=== PATIENT | male | born 1965 | race Caucasian/White ===

== ENCOUNTER 2024-02-11 14:31 | Outpatient (AMB) | payer OTHER, SELFPAY ==
--- NOTE | 2024-02-11 14:46 | MHC.OFFVIS ---
Vital Signs 02/11/24 14:52 Height 6 ft Intake Visit Reasons: Rectal bleeding Intake Note: This patient presents for an assessment for rectal bleeidng. Pt c/o; reports his rectal bleeding started several weeks ago, reports itchiness. Emergency Management Coordinator Required: No Accompanied by: Self / Same As Patient Allergies No Known Allergies Allergy (Verified 02/11/24 14:57) Medication List - Last Reconciled 02/11/24 by Danilo Madsen MD amlodipine 10 mg PO DAILY aspirin 81 mg PO DAILY atorvastatin 10 mg PO DAILY bupropion HCl XL 150 mg PO DAILY hydrochlorothiazide 25 mg PO DAILY losartan 100 mg PO DAILY metoprolol succinate ER 50 mg PO DAILY paroxetine HCl 20 mg PO DAILY HPI HPI Rectal bleeding: Details: 58-year-old male referred for bleeding hemorrhoids. He says that about a month ago he noticed bleeding and pain in his anus. He says that he started applying preparation age. He says that this has improved significantly since that time He denies any history of straining and constipation. He says he was not aware that he had hemorrhoids in the past He says he feels much better now and does not seem to have significant symptoms anymore. He says he used to live in [place] and his last colonoscopy was about 6 years ago. [facility] Medical History Bleeding hemorrhoids Surgical History No pertinent past surgical history Family History Other Family history unknown Social History Unable to assess alcohol history related to: Unknown Patient Tobacco Use Status: Tobacco use Unknown Review of Systems Const Denies chills and Denies fever(s) Card Denies chest pain, Denies dyspnea and Denies dyspnea on exertion Resp Denies cough, Denies dyspnea and Denies dyspnea on exertion GI Reports hematochezia and Denies change in bowel habits Denies hematuria and Denies difficulty urinating Musc Denies back pain and Denies limited range of motion Neuro Denies focal weakness and Denies convulsions Psych Denies depression and Denies mood swings Physical Exam Const General: comfortable and no acute distress Orientation/consciousness: patient oriented x3 Neck Neck: Yes no lymphadenopathy Resp Auscultation: clear to auscultation bilaterally Cardio Rhythm: regular rhythm GI Other: Rectal exam shows a moderate size external hemorrhoid on the right side Palpation (GI): Soft to palpation, nontender and no guarding Neuro General: patient oriented x3 Office Procedures Anoscopy He was in edouard-knife position. The anoscope was gently inserted. A full examination of the anal canal was done. Did have moderate-sized internal hemorrhoids. There were no other lesions. There was no bleeding. He had some external hemorrhoids as well. There was no induration on digital exam. He did not have any significant tenderness. [id number] Assessment & Plan Assessment & Plan (1) Bleeding hemorrhoids: Code(s): K64.9 - Unspecified hemorrhoids Category: Medical Plan: He has moderate-sized internal and external hemorrhoids. He likely had outlet bleeding from this. He says that the bleeding has decreased significantly. He says he no longer has pain I did explain to him the option of hemorrhoidectomy for severe symptoms. I discussed the technique of this procedure as well as the risks, benefits, and alternatives I also advised him on avoiding straining and constipation. He says that if he has problems down the line, he will come back to the office for a follow-up visit to be re-evaluated. I also reminded him to be up-to-date with a screening colonoscopy. He says he may have done it about 5 or 6 years ago while he still lived in [place]. Coding Level of Care Code New Pt Level 3 (56178) Diagnoses Bleeding hemorrhoids K64.9 CPT Codes Details - CPT: 87883-Rwhzddjw ([id number])
== END 2024-02-11 15:14 | disposition home or self-care (01) ==
PROVIDERS: PCP Internal Medicine; Visit Provider Surgery
DX: K64.9 Unspecified hemorrhoids (principal)
CPT/HCPCS: 46600; 99203

== ENCOUNTER → 2024-02-11 14:31 | Outpatient (BNVA) | payer OTHER, SELFPAY | PROVIDERS: PCP Internal Medicine; Visit Provider Surgery | DX: K64.9 Unspecified hemorrhoids (principal) | CPT/HCPCS: 46600; 99202 ==

== ENCOUNTER → 2024-02-23 14:44 | Outpatient (REF) | payer OTHER, SELFPAY ==
--- NOTE | 2024-02-23 14:50 | CA_ITS ---
Transthoracic Echocardiogram Patient (Last, First, Middle): Archie Preston, Gender: Male Date of : 1965 Age: 58 Procedure Date: 02/23/2024 Procedure Type: Transthoracic Echocardiogram Location: OP Height: 185.42 cm Weight: 113.4 kg BSA: 2.37 m2 Heart Rate: bpm BP: 132 / 80 mmHg Production Bow Maker: STEF Referring MD: Tru Bello MD Symptoms: NEW MURMUR Study Quality: Fair ECG Rhythm: Sinus Conclusions: - The left ventricular systolic function is normal. The calculated ejection fraction is 62% by biplane method. - By appearance, prior mitral valve repair. Normal function. Findings Left Ventricle Normal left ventricular cavity size. There is mildly increased left ventricular wall thickness. The left ventricular systolic function is normal. The calculated ejection fraction is 62% by biplane method. There is no evidence of regional wall motion abnormalities. Diastolic function is normal for age. LV peak GLS -19.3% (normal). Right Ventricle Mildly increased right ventricular cavity size. There is normal right ventricular systolic function. Atria The left atrium is mildly dilated. The right atrium is normal in size. Aortic Valve There is a normal trileaflet aortic valve. There is no aortic valve stenosis. There is no aortic valve regurgitation. Mitral Valve There is no mitral valve regurgitation. Mitral valve appearance suggestive of prior repair. Posterior leaflet resection. Mean gradient across the valve, 4 mm Hg at 70/Min. Overall, normal function. Pulmonic Valve The pulmonic valve is likely normal. Tricuspid Valve There is trace tricuspid valve regurgitation. There is no evidence of pulmonary hypertension. Great Vessels The asc aorta is normal in size. Venous The inferior vena cava was not well visualized. Pericardium/Pleural There is no evidence of pericardial effusion. Prior Study Comparison No prior study available for comparison. Measurements 2D Linear Measurements IVSd: 1.10 0.6-0.9/0.6-1.0 cm LVIDd: 5.21 3.9-5.3/4.2-5.9 cm LVIDd Index: 2.20 2.4-3.2/2.2-3.1 cm/m2 LVIDs: 3.50 2.0-3.6 cm LVPWd: 0.93 0.7-1.1 cm LA Diam: 4.90 2.7-3.8/3.0-4.0 cm LAIDs Index: 2.07 1.5-2.3 cm/m2 LV Mass: 247.28 67-162/88-224 g LV Mass Index: 104.34 43-95/49-115 g/m2 LVOT Diam: 2.20 3.0+(-)1.3 cm 2D Systolic Function EF 4C: 62.80 >55% EF 2C: 61.10 >55% EF BiP: 61.50 >55% Mitral Valve MV VTI: 0.50 MV Pk Kamran: 1.45 MV Mn Kamran: 0.92 MV Pk Grad: 8.00 MV Mn Grad: 4.00 MV Pk E: 1.47 MV PK A: 1.28 MV Decel Time: 251.00 E/A: 1.10 E'Lateral: 8.49 E'Medial: 6.42 E/E' Med: 22.90 E/E' Lat: 17.30 PHT: 73.00 MVA PHT: 3.01 MVA Continuity: 1.68 Decel [place]: 5.89 Aortic Valve AoV Pk Kamran: 1.22 AoV Mn Kamran: 0.90 AoV VTI: 0.30 AoV Pk Grad: 6.00 Aov Mn Grad: 4.00 SWETA Cont.VTI: 2.76 LVOT LVOT Pk Kamran: 0.92 LVOT Mn Kamran: 0.63 LVOT VTI: 0.22 LVOT Pk Grad: 3.00 LVOT Mn Grad: 2.00 LVOT Diam: 2.20 LVOT Area: 3.80 Diastolic Function MV Pk E: 1.47 MV Pk A: 1.28 E/A: 1.10 E'Medial: 6.42 E/E' Med: 22.90 E' Laterial: 8.49 E/E' Lat: 17.30 Right Ventricle TAPSE (mm): 20.30 TVS' Kamran: 13.30 Tricuspid Valve TR Pk Kamran: 2.53 TR Pk Grad: 26.00 Great Vessels Aorta Sinus of Valsalva: 3.38 2.0-3.[address] [place]: 3.29 1.7-3.4 cm Ao Asc: 3.60 2.1-3.4 cm Updated in Other Vendor System with Status of Final Devin Tom MD electronically signed on 02/24/2024 12:51:27 PM with status of Final
== END ==
LOC: HO.CARD 14:44
PROVIDERS: PCP Internal Medicine; Visit Provider Internal Medicine
DX: R01.1 Cardiac murmur, unspecified (principal)
CPT/HCPCS: 93306; 93356

== ENCOUNTER → 2024-02-23 14:50 | Outpatient (BNV) | payer OTHER, SELFPAY | PROVIDERS: PCP Internal Medicine; Visit Provider Internal Medicine | DX: R01.1 Cardiac murmur, unspecified (principal) | CPT/HCPCS: 93306; 93356 ==

== ENCOUNTER 2024-03-08 08:14 | Outpatient (AMB) | payer OTHER, SELFPAY ==
[2024-03-08 08:29] VITALS: BP 138/76; PULSE 72; BMI 33.2
--- NOTE | 2024-03-08 08:29 | A.OFFVIS_ITS ---
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 Around 9 years ago, 2014, he apparently had mitral valve repair in [place]. Prior to that, he was having exertional shortness of breath which led to cardiac workup. It seems that he might have been diagnosed with severe mitral regurgitation and then mitral valve was repaired. All details are not available as yet. Will need to request records. Otherwise, for the most part he is doing fine. Federico etimes he is getting short of breath with activities like bending down and sometimes with physical exertion. He also states he has gained a lot of weight. No clear angina. Otherwise, hypertensive on medications. Also on statins. [facility] Medical History (Updated 03/08/24 @ 09:05 by Devin Tom MD) Other and unspecified hyperlipidemia Essential hypertension Bleeding hemorrhoids Surgical History (Updated 03/08/24 @ 09:04 by Devin Tom MD) Status post mitral valve repair No pertinent past surgical history Family History Other Family history unknown Social History (Updated 03/08/24 @ 08:33 by Lucie Jeter CMA) Unable to assess alcohol history related to: Unknown Alcohol intake: current Comment: social Patient Tobacco Use Status: Never used Tobacco Review of Systems Const Denies chills, Denies daytime sleepiness, Denies fatigue, Denies fever(s), Denies poor appetite, Denies snoring, Denies stops breathing during sleep, Denies weakness, Denies weight gain and Denies weight loss Eyes Denies loss of vision ENT Denies dizziness and Denies hearing loss Card Denies chest pain, Denies irregular heart rhythm, Denies claudication, Denies leg edema, Denies lightheadedness, Denies palpitations, Denies dyspnea on exertion and Denies orthopnea Resp Denies cough, Denies excessive phlegm production, Denies dyspnea on exertion, Denies snoring and Denies wheezing GI Denies abdominal pain, Denies hematochezia, Denies change in bowel habits, Denies nausea and Denies vomiting Denies dysuria and Denies urinary frequency Musc Denies arthralgias, Denies muscle weakness, Denies numbness and Denies other Skin/Breast Denies nail changes and Denies rash Neuro Denies Abnormal speech present, Denies dizziness, Denies loss of vision, Denies memory loss, Denies numbness and Denies weakness Psych Denies depression and Denies memory loss Endo Denies fatigue and Denies palpitations Geo/Lymph Denies easy bruising Aller/Immun Denies wheezing Physical Exam Vital Signs: Last Vital Signs Pulse 72 03/08/24 08:29 BP 138/76 03/08/24 08:29 BMI result Body Mass Index 33.2 Const General: comfortable and no acute distress Orientation/consciousness: patient oriented x3 HEENT Other: Unremarkable Head: Yes normal to inspection Neck Neck: Yes normal visual inspection Chest Chest palpation & inspection: normal inspection of the chest Resp Auscultation: clear to auscultation bilaterally Cardio Palpation: normal PMI Heart sounds: S1 normal heart sound present, S2 normal heart sound present, no gallops, Murmur heart sound present systolic II/ and at the apex and no rubs GI Palpation (GI): Soft to palpation Back/Spine/Pelvis Other: unremarkable Skin General skin exam: no rashes or lesions noted Neuro General: patient oriented x3 Speech: No Abnormal speech present Extrem General: Yes normal to inspection Psych Mental Status: mental status grossly normal Office Procedures EKG Details: EKG with underlying sinus rhythm at 72/Min; no significant ST-T changes and otherwise unremarkable. Normal MS. Borderline corrected QT at 475 milliseconds. 33578-Rqkyhrvivgnwyxtfb, Complete Assessment & Plan Assessment & Plan (1) Status post mitral valve repair: Code(s): Z98.890 - Other specified postprocedural states Category: Surgical (2) Essential hypertension: Code(s): I10 - Essential (primary) hypertension Category: Medical (3) Other and unspecified hyperlipidemia: Code(s): E78.5 - Hyperlipidemia, unspecified Category: Medical Plan In the recent echocardiogram, evidence of mitral valve repair with posterior leaflet resection. No significant mitral regurgitation. Gradient within range. Preserved LVEF with normal peak global longitudinal strain. Overall study is unremarkable. His shortness of breath could be related to weight gain as opposed to anything cardiac. Will need to get records from [place] including details of any cardiac catheterization. Otherwise, blood pressure is borderline and he is already on multiple medication s. Also on statins. LDL 79 mg/dL. Triglycerides 121 mg/dL. Will follow-up with records. Coding Level of Care Code New Pt Level 4 (54376) Diagnoses Status post mitral valve repair Z98.890 Essential hypertension I10 Other and unspecified hyperlipidemia E78.5 CPT Codes EKG - CPT: 18953-Owzggstxmbdgzyyid, Complete ([id number])
== END 2024-03-08 08:59 | disposition home or self-care (01) ==
PROVIDERS: PCP Internal Medicine; Visit Provider Internal Medicine
DX: I10 Essential (primary) hypertension (principal); E78.5 Hyperlipidemia, unspecified; Z95.4 Presence of other heart-valve replacement
CPT/HCPCS: 93010; 99214

== ENCOUNTER → 2024-03-08 08:14 | Outpatient (BNVA) | payer OTHER, SELFPAY | PROVIDERS: PCP Internal Medicine; Visit Provider Internal Medicine | DX: I10 Essential (primary) hypertension (principal); E78.5 Hyperlipidemia, unspecified; Z98.890 Other specified postprocedural states | CPT/HCPCS: 93005; 99212 ==

== ENCOUNTER 2024-04-27 14:08 | Outpatient (AMB) | payer OTHER, SELFPAY ==
[2024-04-27 14:09] VITALS: BP 130/60; PULSE 80; BMI 33.0
--- NOTE | 2024-04-27 14:09 | MHC.OFFVIS ---
Vital Signs 04/27/24 14:09 Height 6 ft Weight 243 lb 6.245 oz BMI 33.0 BP 130/60 Blood Pressure Location Lt brachial Position Sitting Pulse 80 Pulse Source Pulse Oximeter Intake Visit Reasons: 2 mth f/up s/p fla notes C Architect Required: No Accompanied by: Self / Same As Patient Allergies No Known Allergies Allergy (Verified 02/11/24 14:57) Medication List - Last Reconciled 04/27/24 by Devin Tom MD amlodipine 10 mg PO DAILY aspirin 81 mg PO DAILY atorvastatin 10 mg PO DAILY bupropion HCl XL 150 mg PO DAILY hydrochlorothiazide 25 mg PO DAILY losartan 100 mg PO DAILY metoprolol succinate ER 50 mg PO DAILY paroxetine HCl 20 mg PO DAILY HPI Comments Details: Archie returns for follow-up. Recently seen in consultation regarding mitral valve repair. Records were reviewed. In 2014, he underwent complex mitral valve repair with resection of P2. Mitral valve annuloplasty with 34 mm ring. Diagnosis listed include severe mitral regurgitation/congestive heart failure. Overall, he states he feels fine for the most part. When he bends down or so, he can feel short of breath but he feels that it is due to gaining weight. His weight was as low as 180-190 lb in the past but he has gained a lot of weight over time and he feels that is the reason. No clear-cut angina. No other concerns. On meds for hypertension and cholesterol. [facility] Medical History (Updated 03/08/24 @ 09:05 by Devin Tom MD) Other and unspecified hyperlipidemia Essential hypertension Bleeding hemorrhoids Surgical History Status post mitral valve repair No pertinent past surgical history Family History Other Family history unknown Social History Unable to assess alcohol history related to: Unknown Alcohol intake: current Comment: social Patient Tobacco Use Status: Never used Tobacco Review of Systems Const Denies chills, Denies fatigue, Denies fever(s), Denies weight gain and Denies weight loss ENT Denies dizziness Card Denies chest pain, Denies leg edema, Denies lightheadedness, Denies palpitations, Denies dyspnea on exertion, Denies orthopnea and Denies other Resp Denies cough and Denies dyspnea on exertion GI Denies hematochezia and Denies change in stool character Musc Denies abnormal gait, Denies muscle weakness, Denies numbness, Denies radiating pain into limb and Denies tingling Neuro Denies abnormal gait, Denies dizziness, Denies numbness and Denies tingling Endo Denies fatigue and Denies palpitations Physical Exam Vital Signs: Last Vital Signs Pulse 80 04/27/24 14:09 BP 130/60 04/27/24 14:09 BMI result Body Mass Index 33.0 Const General: comfortable and no acute distress Orientation/consciousness: patient oriented x3 HEENT Other: Unremarkable Head: Yes normal to inspection Neck Neck: Yes normal visual inspection Chest Chest palpation & inspection: normal inspection of the chest Resp Auscultation: clear to auscultation bilaterally Cardio Palpation: normal PMI Heart sounds: S1 normal heart sound present, S2 normal heart sound present, no gallops, Murmur heart sound present systolic II/ and at the apex and no rubs GI Palpation (GI): Soft to palpation Back/Spine/Pelvis Other: unremarkable Skin General skin exam: no rashes or lesions noted Neuro General: patient oriented x3 Extrem General: Yes normal to inspection Psych Mental Status: mental status grossly normal Assessment & Plan Assessment & Plan (1) Status post mitral valve repair: Code(s): Z98.890 - Other specified postprocedural states Category: Surgical Plan Per operative note from 2015- mitral valve repair/P2 resection; annuloplasty with 34 mm ring. In the recent echocardiogram, evidence of mitral valve repair with posterior leaflet resection. No significant mitral regurgitation. Gradient within range. Preserved LVEF with normal peak global longitudinal strain. Overall study is unremarkable. Overall, stable valvular function, post mitral valve repair. Suspect his occasional shortness of breath when he is bending down is more likely from weight than anything cardiac. After long discussion, we decided to just monitor for now. If shortness of breath gets worse, we can look into it further. Otherwise, he will try to lose weight and then we will reassess. Coding Level of Care Code Est Pt Level 3 (01069) Diagnoses Status post mitral valve repair Z98.890
== END 2024-04-27 14:27 | disposition home or self-care (01) ==
PROVIDERS: PCP Internal Medicine; Visit Provider Internal Medicine
DX: Z98.890 Other specified postprocedural states (principal)
CPT/HCPCS: 99213

== ENCOUNTER → 2024-04-27 14:08 | Outpatient (BNVA) | payer OTHER, SELFPAY | PROVIDERS: PCP Internal Medicine; Visit Provider Internal Medicine | DX: Z98.890 Other specified postprocedural states (principal) | CPT/HCPCS: 99212 ==

== ENCOUNTER 2024-10-17 14:31 | Outpatient (REF) | payer OTHER, SELFPAY ==
--- NOTE | ~2024-10-17 | XR_ITS ---
EXAMINATION: XR FOOT 3 OR MORE VIEWS RIGHT HISTORY: RIGHT FOOT PAIN COMPARISON: There are no prior studies available for comparison. FINDINGS: Three views of the right foot are submitted. Osseous mineralization is normal. There is no fracture or dislocation. The joint spaces are preserved. There are calcaneal spurs at the plantar aspect and at the insertion of the Achilles tendon. The soft tissues are unremarkable. XR/XR foot RT min 3V IMPRESSION: Calcaneal spurs as described. Otherwise unremarkable examination of the right foot. Electronically signed by: Kevin Morrison MD 10/18/2024 08:12 AM EDT
--- OUTSIDE RECORDS SUMMARY | 2024-10-17 17:21 | XMS_ITS | Patient Health Record ---
Author Organization [facility] Address [address] [place] [address] Care Team Providers Care Child And Adolescent Psychiatrist Name Role Phone David Joyner Primary Care Provider Tad Rosario Unavailable [phone] Allergies No Known Allergies Reason For Referral No Information Medications Medication SIG (Take, Route, Frequency, Duration) Notes Start Date End Date Status hydroCHLOROthiazide Active Metoprolol Active Clenpiq 10-3.5-12 MG-GM -GM/175ML Follow instructions given by office Orally as directed for 2 days 04/01/2023 Active Losartan Potassium A ctive Atorvastatin Calcium Active ASA Active Bupropion Active amlodipine Active PARoxetine HCl Activ e Problems Problem Type SNOMED Code ICD Code Onset Dates Problem Status W/U Status Risk Notes Problem Abnormal results of liver function studies (683709965) Abnormal results of liver function studies (R94.5) Active confirmed This has been stable. Problem Alcohol dependence (07416876) Alcohol dependence, uncomplicated (F10.20) Active confirmed He has significant alcohol abuse. He was advised to stop drinking alcohol altogether. Problem Screening for malignant neoplasm of colon (709448323) Encounter for screening for malignant neoplasm of colon (Z12.11) Active confirmed He is a candidate for screening colonoscopy. Problem Diverticular disease of colon (153660402) Diverticulosis of large intestine without perforation or abscess without bleeding (K57.30) Active confirmed There is no evidence of diverticulitis . Problem Fatty liver (362066799) Fatty (change of) liver, not elsewhere classified (K76.0) Active confirmed He has history of fatty liver changes. He will need FIBROSCAN done. Problem Constipation (55420923) Constipation, unspecified (K59.00) Active confirmed Constipation is stable at this time. 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 Problem Screening colonoscopy (139755078) Screening Colonoscopy (V76.51) Active confirmed Problem Constipation (70397545) Constipation (564.00) Active confirmed Problem 908722793 Benign neoplasm of colon, unspecified (D12.6) Active confirmed He had previous history of colon polyps. He is a candidate for surveillance colonoscopy. He is agreeable to have a colonoscopy done. Plan Of Treatment Pending Test Test Name Order Date -COLONOSCOPY 04/01/2023 FIBROSCAN 04/01/2023 Insurance Providers Payer Name Payer Address Payer Phone Subscriber Number Group Number Insured Name Patient Relationship to Insured Coverage Start Date Coverage End Date [employer] [address] [place] [address] [id number] DAHLIA CORONADO Self - patient is the insured Medical (General) History Medical History History ICD Code dyslipidemia anxiety Hypertension Fatty liver Surgical History Surgery Date(Month/Year) leaky mitrovalve open heart
--- OUTSIDE RECORDS SUMMARY | 2024-10-17 17:21 | XMS_ITS | Patient Health Record ---
Author Organization [facility] Billing Info Address [address] [place] [address] Care Team Providers Care Director Clinical Applications Name Role Phone David Joyner MD Primary Care Provider Unavaila RUBEN [place] Unavailable [phone] Reason For Referral No Information Medications Medication SIG (Take, Route, Frequency, Duration) Notes Start Date End Date Status Aspir-81 81 MG 1 tablet Orally Once a day Active Losartan Potassium 50 MG Oral for 90 Active Citalopram Hydrobromide 20 MG 1 tablet Orally Once a day Active Social History Tobacco Use: Social History Observation Description Date Details (start date - stop date) Never Smoker NA - NA Tobacco Status: Question Answer Notes Patient is a never smoker Problems Problem Type SNOMED Code ICD Code Onset Dates Problem Status W/U Status Risk Notes Problem 34929808 Mixed hyperlipidemia (E78.2) Active confirmed Problem 5742006739066 Presence of prosthetic heart valve (Z95.2) Active confirmed Problem 62596901 Palpitations (R00.2) Active confirmed Problem Mitral valve disorder (16348133) Mitral valve disorders (I05.9) Active confirmed Plan Of Treatment No Information Insurance Providers Payer Name Payer Address Payer Phone Subscriber Number Group Number Insured Name Patient Relationship to Insured Coverage Start Date Coverage End Date [employer] HMO POS [address] JELENA HERRERA [id number] [phone] [id number] Archie Preston Self - patient is the insured Medical (General) History Medical History History ICD Code Dyslipidemia Hypertension MVP s/p Complex MV repair with 34mm Phys io II ring 4/[address] Queen Normal coronary arteries by 08/27 cath
--- OUTSIDE RECORDS SUMMARY | 2024-10-17 17:21 | XMS_ITS ---
Author Organization [facility] Address [address] [place] [address] Care Team Providers Care Boat Garnisher Name Role Phone David Joyner Primary Care Provider Tad Rosario [phone] REASON FOR VISIT PT MOVING OUT OF STATE Encounters Encounter Location Date Provider Diagnosis [facility] [address] [facility] [address] [place], [place] [id number] 06/15/2023 Tad Noonan Plan Of Treatment No Information Progress Notes * DAHLIA CORONADO WDOB:[birth year] (59 yo M)Acc No.[id number]:06/15/2023 Patient:?DAHLIA CORONADO Provider:?Tad Noonan MD :1965???Age:58 Y???Sex:Male Eris e:06/15/2023 Address:[address] Pcp:David Joyner * * Electronic signature of Bijan Noonan MD on 10/17/2024 at 05:20 PM EDT Sign off status: Pending * Provider:?Tad Noonan MD Date:? 023 Generated for Ronel hammonds/Javier/eTransmitting on:?10/17/2024 05:20 PM EDT
== END 2024-10-17 14:32 | disposition home or self-care (01) ==
LOC: HO.HMGCX 14:31
PROVIDERS: PCP Internal Medicine; Visit Provider Internal Medicine
DX: M79.671 Pain in right foot (principal)
CPT/HCPCS: 73630

== ENCOUNTER → 2024-10-17 14:36 | Outpatient (BNV) | payer OTHER, SELFPAY | PROVIDERS: PCP Internal Medicine; Visit Provider Radiology Diagnostic Radiology | DX: M77.31 Calcaneal spur, right foot (principal) | CPT/HCPCS: 73630 ==

== ENCOUNTER 2024-10-27 09:58 | Outpatient (AMB) | payer OTHER, SELFPAY ==
--- NOTE | 2024-10-27 10:00 | MHC.OFFVIS ---
Vital Signs 10/27/24 10:03 Height 6 ft Weight 229 lb 11.547 oz BMI 31.2 BP 130/64 Blood Pressure Location Lt brachial Position Sitting Pulse 67 Pulse Source Pulse Oximeter Intake Visit Reasons: 6 mth f/up Patient Monitor Required: No Accompanied by: Self / Same As Patient Allergies No Known Allergies Allergy (Verified 02/11/24 14:57) Medication List - Last Reconciled 10/27/24 by Devin Tom MD amlodipine 10 mg PO DAILY aspirin 81 mg PO DAILY atorvastatin 10 mg PO DAILY bupropion HCl XL 150 mg PO DAILY hydrochlorothiazide 25 mg PO DAILY losartan 100 mg PO DAILY metoprolol succinate ER 50 mg PO DAILY paroxetine HCl 20 mg PO DAILY HPI Comments Details: Archie returns for follow-up. History of mitral valve repair. In 2014, he underwent complex mitral valve repair with resection of P2. Mitral valve annuloplasty with 34 mm ring. Diagnosis listed include severe mitral regurgitation/congestive heart failure. Overall, he states he feels good. No cardiac symptoms including angina or shortness of breath or in fact anything along those lines. Has gained some weight over the last few months. Otherwise no concerns. On meds for hypertension/cholesterol. Exercise The patient reports a current focus on weight loss with no specific exercise regimen mentioned. There are no symptoms associated with exertion, and he mentions being out of breath is no longer an issue. His goal involves losing weight, but specific details about exercise type, duration, and frequency were not discussed. [facility] Medical History (Updated 03/08/24 @ 09:05 by Devin Tom MD) Other and unspecified hyperlipidemia Essential hypertension Bleeding hemorrhoids Surgical History Status post mitral valve repair No pertinent past surgical history Family History Other Family history unknown Social History Unable to assess alcohol history related to: Unknown Alcohol intake: current Comment: social Patient Tobacco Use Status: Never used Tobacco Review of Systems Const Denies chills, Denies fatigue, Denies fever(s), Denies frequent falls, Denies weakness, Denies weight gain and Denies weight loss ENT Denies dizziness Card Denies chest pain, Denies leg edema, Denies lightheadedness, Denies palpitations, Denies dyspnea and Denies dyspnea on exertion Resp Denies cough, Denies dyspnea and Denies dyspnea on exertion GI Denies hematochezia Musc Denies abnormal gait, Denies muscle weakness, Denies numbness, Denies radiating pain into limb and Denies tingling Neuro Denies abnormal gait, Denies dizziness, Denies frequent falls, Denies numbness, Denies tingling and Denies weakness Endo Denies fatigue and Denies palpitations Physical Exam Vital Signs: Last Vital Signs Pulse 67 10/27/24 10:03 BP 130/64 10/27/24 10:03 BMI result Body Mass Index 31.2 Const General: comfortable and no acute distress Orientation/consciousness: patient oriented x3 HEENT Other: Unremarkable Head: Yes normal to inspection Neck Neck: Yes normal visual inspection Chest Chest palpation & inspection: normal inspection of the chest Resp Auscultation: clear to auscultation bilaterally Cardio Palpation: normal PMI Heart sounds: S1 normal heart sound present, S2 normal heart sound present, no gallops, Murmur heart sound present systolic I/ and at the apex and no rubs GI Palpation (GI): Soft to palpation Back/Spine/Pelvis Other: unremarkable Skin General skin exam: no rashes or lesions noted Neuro General: patient oriented x3 Extrem General: Yes normal to inspection Psych Mental Status: mental status grossly normal Assessment & Plan Assessment & Plan (1) Status post mitral valve repair: Code(s): Z98.890 - Other specified postprocedural states Category: Surgical Plan Per operative note from 2014- mitral valve repair/P2 resection; annuloplasty with 34 mm ring. In the echocardiogram, evidence of mitral valve repair with posterior leaflet resection. No significant mitral regurgitation. Gradient within range. Preserved LVEF with normal peak global longitudinal strain. Overall study is unremarkable. Overall, stable valvular function, post mitral valve repair. In fact endocarditis prophylaxis per protocol. Main recommendation his weight loss and he is willing to do his part to get back to baseline. Stable on the current meds for hypertension/dyslipidemia. Discussion Notes During the visit, I reviewed the patient's goals for weight management and discussed the importance of lifestyle modification, including diet and exercise. We planned an echocardiogram in one year to continue monitoring cardiac health, which aligns with his baseline evaluation schedule and current asymptomatic status. I advised the patient to remain alert to any new symptoms and to seek medical attention should any arise. Weight loss remains a primary objective after his recent cruises, and patient consent was obtained for the proposed management plan. Patient was informed and verbally consented to the use of an ambient scribe for clinic note documentation during this visit. Orders: Orders CA echo transthoracic complete 1 Year Z98.890 - Other specified postprocedural states Patient Instructions: - Aim to reduce your weight from 229 pounds to reach your baseline target of 180 pounds. - Continue to monitor for any new symptoms like chest pain or difficulty breathing. - Maintain communication with our office if you experience any health changes. - Follow up for an echocardiogram in one year. Coding Level of Care Code Est Pt Level 3 (82833) Diagnoses Status post mitral valve repair Z98.890
[2024-10-27 10:03] VITALS: BP 130/64; PULSE 67; BMI 31.2
--- OUTSIDE RECORDS SUMMARY | 2024-10-27 11:38 | XMS_ITS | Patient Health Record ---
Author Organization [facility] Address [address] [place] [address] Care Team Providers Care Otr [employer] Driver Name Role Phone David Joyner Primary Care Provider Tad Rosario Unavailable [phone] Allergies No Known Allergies Reason For Referral [...] Problem Abnormal results of liver function studies (096678854) Abnormal results of liver function studies (R94.5) Active confirmed This has been stable. Problem Alcohol dependence (89651711) Alcohol dependence, uncomplicated (F10.20) Active confirmed He has significant alcohol abuse. He was advised to stop drinking alcohol altogether. Problem Screening for malignant neoplasm of colon (535939133) Encounter for screening for malignant neoplasm of colon (Z12.11) Active confirmed He is a candidate for screening colonoscopy. Problem Diverticular disease of colon (060335494) Diverticulosis of large intestine without perforation or abscess without bleeding (K57.30) Active confirmed There is no evidence of diverticulitis . Problem Fatty liver (420437875) Fatty (change of) liver, not elsewhere classified (K76.0) Active confirmed He has history of fatty liver changes. He will need FIBROSCAN done. Problem Constipation (61111739) Constipation, unspecified (K59.00) Active confirmed Constipation is stable at this time. 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 Problem Screening colonoscopy (661438032) Screening Colonoscopy (V76.51) Active confirmed Problem Constipation (60412187) Constipation (564.00) Active confirmed Problem 105575116 Benign neoplasm of colon, unspecified (D12.6) Active [...] Start Date Coverage End Date [employer] [address] [place] [address] [id number] DAHLIA CORONADO Self - patient is the insured Medical (General) History Medical History History ICD Code dyslipidemia anxiety Hypertension Fatty liver Surgical History Surgery Date(Month/Year) leaky mitrovalve open heart
--- OUTSIDE RECORDS SUMMARY | 2024-10-27 11:39 | XMS_ITS | Patient Health Record ---
Author Organization [facility] Billing Info Address [address] [place] [address] Care Team Providers Care Licensed Optician Name Role Phone David Joyner MD Primary Care Provider Unavaila RUBEN [place] Unavailable [phone] Reason For Referral No Information Medications Medication [...] Problem Status W/U Status Risk Notes Problem 56808561 Mixed hyperlipidemia (E78.2) Active confirmed Problem 6037710742792 Presence of prosthetic heart valve (Z95.2) Active confirmed Problem 65699032 Palpitations (R00.2) Active confirmed Problem Mitral valve disorder (98541929) Mitral valve disorders (I05.9) Active confirmed Plan Of Treatment No Information Insurance Providers Payer Name Payer Address Payer Phone Subscriber Number Group Number Insured Name Patient Relationship to Insured Coverage Start Date Coverage End Date [employer] HMO POS [address] JELENA HERRERA [id number] Archie Preston Self - patient is the insured Medical (General) History Medical History History ICD Code Dyslipidemia Hypertension MVP s/p Complex MV repair with 34mm Phys io II ring 4/[address] Queen Normal coronary arteries by 08/27 cath
--- OUTSIDE RECORDS SUMMARY | 2024-10-27 11:39 | XMS_ITS ---
Author Organization [facility] Address [address] [place] [address] Care Team Providers Care Automation Analyst Name Role Phone David Joyner Primary Care Provider Tad Rosario [phone] REASON FOR VISIT PT MOVING OUT OF STATE Encounters Encounter Location Date Provider Diagnosis [facility] [address] [facility] [address] [facility] [address] [place], [place] [id number] 06/15/2023 Tad Noonan Plan Of Treatment No Information Progress Notes * DAHLIA CORONADO WDOB:[birth year] (59 yo M)Acc No.[id number]:06/15/2023 Patient:?DAHLIA CORONADO Provider:?Tad Noonan MD :1965???Age:58 Y???Sex:Male Eris e:06/15/2023 Address:[address], [address], [facility]3][id number] Pcp:David Joyner * * Electronic signature of Bijan Noonan MD on 10/27/2024 at 11:39 AM EDT Sign off status: Pending * Provider:?Tad Noonan MD Date:? 023 Generated for Ronel hammonds/Javier/eTransmitting on:?10/27/2024 11:39 AM EDT
== END 2024-10-27 10:13 | disposition home or self-care (01) ==
PROVIDERS: PCP Internal Medicine; Visit Provider Internal Medicine
DX: Z98.890 Other specified postprocedural states (principal)
CPT/HCPCS: 99213

== ENCOUNTER → 2024-10-27 09:58 | Outpatient (BNVA) | payer OTHER, SELFPAY | PROVIDERS: PCP Internal Medicine; Visit Provider Internal Medicine | DX: Z98.890 Other specified postprocedural states (principal) | CPT/HCPCS: 99212 ==

== ENCOUNTER 2025-03-21 09:31 | Outpatient (AMB) | payer OTHER, SELFPAY ==
--- NOTE | 2025-03-21 09:52 | MHC.PC.OV ---
Vital Signs 03/21/25 09:53 Height 6 ft 0.44 in Weight 230 lb BMI 30.8 BP 119/59 L Respiration 18 Pulse 72 Pulse Source Pulse Oximeter Temp 97.8 F Temp Source Temporal Artery Scan Pulse Oximetry (%) 96 Oxygen Delivery Method Room Air Intake Visit Reasons: Est [facility] pt Fourth Hand Required: No Accompanied by: Self / Same As Patient Allergies No Known Allergies Allergy (Verified 03/21/25 10:12) Medication List - Last Reconciled 03/21/25 by Gwendolyn Duran PA-C amlodipine 10 mg PO DAILY aspirin 81 mg PO DAILY atorvastatin 10 mg PO DAILY bupropion HCl XL 150 mg PO DAILY hydrochlorothiazide 25 mg PO DAILY losartan 100 mg PO DAILY metoprolol succinate ER 50 mg PO DAILY paroxetine HCl 20 mg PO DAILY Tobacco use date assessed: 03/21/25 Dental Screening Dental Screen Date: 03/21/25 Did you have a dental visit in the last 12 months?: Yes Did you have a dental problem in the last 6 months where you did not have access to dental care?: No Was dental information given to patient?: Patient has dentist HPI Est care [facility] pt HPI Details The patient is a 59-year-old male presenting for new patient appointment with hypertension and a history of heart valve disorder. Hypertension has been managed with multiple antihypertensive medications, including amlodipine, metoprolol, losartan, and hydrochlorothiazide. The patient reports that blood pressure has been well-controlled, currently at 120/60 mmHg, but there is a plan to monitor and potentially reduce medication if it remains consistently low. The patient has a history of heart valve disorder, having undergone open-heart surgery in 2014. An echocardiogram last year showed no significant issues, but a faint murmur was noted during the current examination. The patient is also being treated for anxiety and depression with bupropion and paroxetine. These medications were initially prescribed in [place] and have been continued by the current provider. Social History - Travel: Recently returned from a cruise and plans to travel to [employer] for [employer]. - Exercise: Does not engage in jogging but experiences dyspnea with exertion. [facility] Medical History (Updated 03/21/25 @ 10:38 by Gwendolyn Duran PA-C) Anxiety and depression Other and unspecified hyperlipidemia Essential hypertension Bleeding hemorrhoids Surgical History Status post mitral valve repair No pertinent past surgical history Family History Father Smoker Mother Aneurysm Social History Housing: Condominium Alcohol intake: current Alcohol intake frequency: 3 or more drinks per day Patient Tobacco Use Status: Never used Tobacco service: No Current occupational status: retired Cognitive needs: No Hearing needs: No Vision needs: Yes (rx glasses) Questionnaire PHQ-9 Over the last 2 weeks, how often have you been bothered by any of the following problems? 1. Little interest or pleasure in doing things: not at all 2. Feeling down, depressed, or hopeless: not at all 3. Trouble falling or staying asleep, or sleeping too much: not at all 4. Feeling tired or having little energy: not at all 5. Poor appetite or overeating: not at all 6. Feeling bad about yourself - or that you are a failure or have let yourself or your family down: not at all 7. Trouble concentrating on things, such as reading the newspaper or watching television: not at all 8. Moving or speaking so slowly that other people could have noticed. Or the opposite - being so fidgety or restless that you have been moving around a lot more than usual: not at all 9. Thoughts that you would be better off or of hurting yourself in some way: not at all Total score: 0 Depression Screening Interpretation: Negative Depression Screening Done: Yes 37182 - PHQ-9 Billing: Yes Source: Developed by Drs. Kevin Cage, Kathryn Suarez, Bernardo Solis and colleagues, with an educational liliana from [employer]. Thrive Questionnaire Date Thrive assessed: 03/21/25 I am a: Patient What is your living situation today?: I have a steady place to live Within the past 12 months, did the food you bought not last and you didn't have the money to get more?: Never true Within the past 12 months, did you worry whether your food would run out before you got money to buy more?: Never true Do you have trouble paying for medicines?: No Do you have trouble getting transportation to medical appointments?: No Do you have trouble paying your heating and electricity bill?: No Do you have trouble taking care of your child, family member or friend?: No Do you have trouble with day-to-day activities such as bathing, preparing meals, shopping, managing finances, etc.?: No Are you currently unemployed and looking for a job?: No Are you interested in more education?: No Please select the resources that you would like help with: None THRIVE Score: 0 AUDIT C Alcohol Use Questionnaire (AUDIT-C) 1. How often do you have a drink containing alcohol?: 4 or more times a week 2. How many drinks containing alcohol do you have on a typical day when you are drinking?: 3 or 4 3. How often do you have six or more drinks on one occasion?: Never Total Score: 5 Score Reviewed/Action Taken: No RITA-7 AMB Questionnaire RITA-7 Date RITA - 7 assessed: 03/21/25 Feeling nervous, anxious, or on edge: 0 = Not at all Not being able to stop or control worryin = Not at all Worrying too much about different things: 0 = Not at all Trouble relaxin = Not at all Being so restless that it is hard to sit still: 0 = Not at all Becoming easily annoyed or irritable: 0 = Not at all Feeling afraid as if something awful might happen: 0 = Not at all Total RITA-7 score (0-4 normal; 5-9 mild; 10-14 moderate; 15-21 severe): 0 Source: Developed by Drs. Kevin Cage, Kathryn Suarez, Bernardo Solis and colleagues, with an educational liliana from [employer]. RITA-7 Assessment Billing RITA-7 Assessment Tool: RITA-7 Assessment 23480 Review of Systems Const Details: - Cardiovascular: Denies chest pain, reports dyspnea on exertion. - Musculoskeletal: Denies calf pain, reports mild leg swelling. All systems reviewed & are unremarkable except as noted in HPI and below Physical exam (Primary Care) Vital Signs: Last Vital Signs Temp 97.8 F 03/21/25 09:53 Pulse 72 03/21/25 09:53 Resp 18 03/21/25 09:53 BP 119/59 L 03/21/25 09:53 Pulse Ox 96 03/21/25 09:53 Oxygen Delivery Method Room Air 03/21/25 09:53 Care Plan Goal for BP management: <140/90 at Goal BMI result Body Mass Index 30.8 BMI Assessment/Plan discussion: High BMI High, discussed plan: lifestyle, weight reduction, dietary, physical activity, alcohol moderation and other Tobacco/Smoking Status: Tobacco use Status Tobacco use date assessed 03/21/25 03/21/25 10:01 Patient Tobacco Use Status Never used Tobacco 03/21/25 10:01 PHQ-9: PHQ-9 Score PHQ-9: Total score 0 03/21/25 10:01 Depression Screening Interpretation: Negative Thrive Assessment: Date of Thrive Assessment Date Thrive assessed 03/21/25 03/21/25 10:01 Const Other: Appearance: Alert. Oriented X3. No acute distress. Head: Normal external exam. Normocephalic. Atraumatic. Eyes: Pupils are equal, round, and reactive to light. Extraocular movements intact. Conjunctiva and sclera normal. Eyelids normal. Throat: Pharynx normal. Uvula midline. Moist mucous membranes. Neck: Normal inspection. Neck supple. Full range of motion. Cardiovascular: Normal heart rate and rhythm. Heart sound normal. A faint murmur noted. Pulses normal throughout. Respiratory: No respiratory distress. Painless inspiration. Breath sounds normal. No wheezes/rales/rhonchi noted. Chest nontender. No accessory muscle usage noted or decreased air movement noted. Back: Full range of motion noted. Skin: Skin warm and dry. Normal skin color. Normal skin turgor. No rashes/lesions/lacerations noted. Extremities: Extremities exhibit normal range of motion. Slight swelling noted, no calf pain. Neuro: Oriented X 3. No motor deficit. No sensory deficit. Reflexes normal. Results Reviewed Results Reviewed: - Echocardiogram: Last year's results showed no significant issues with heart valve function. Coding Level of Care Code New Pt Level 4 (19363) Complex EM visit Add On G2211 Diagnoses Essential hypertension I10 Status post mitral valve repair Z98.890 Anxiety and depression F41.9; F32.A Additional Codes PHQ-9 - 69972 - PHQ-9 Billing: Yes ([id number]) RITA-7 Assessment Billing - RITA-7 Assessment Tool: RITA-7 Assessment 22118 ([id number]) Assessment & Plan Assessment & Plan (1) Essential hypertension: Code(s): I10 - Essential (primary) hypertension Category: Medical Plan: The patient's hypertension is currently well-controlled with a regimen of amlodipine, metoprolol, losartan, and hydrochlorothiazide. The plan includes monitoring blood pressure closely and considering a reduction in medication dosage if blood pressure remains consistently low. (2) Status post mitral valve repair: Code(s): Z98.890 - Other specified postprocedural states Category: Surgical Plan: The patient has a history of heart valve disorder, with previous open-heart surgery in 2014. A recent echocardiogram showed no significant issues, but a faint murmur was noted during the current examination. Continued monitoring and follow-up with cardiology are recommended. (3) Anxiety and depression: Code(s): F41.9 - Anxiety disorder, unspecified; F32.A - Depression, unspecified Category: Medical Plan: The patient is currently on bupropion and paroxetine for anxiety and depression. These medications were initially prescribed in [place] and have been continued by the current provider. The plan is to continue the current medication regimen and monitor for efficacy and side effects. Plan Plan Patient was informed and verbally consented to the use of an ambient scribe for clinic note documentation during this visit. 1. Hypertension The patient's hypertension is currently well-controlled with a regimen of amlodipine, metoprolol, losartan, and hydrochlorothiazide. The plan includes monitoring blood pressure closely and considering a reduction in medication dosage if blood pressure remains consistently low. 2. Heart Valve Disorder The patient has a history of heart valve disorder, with previous open-heart surgery in 2014. A recent echocardiogram showed no significant issues, but a faint murmur was noted during the current examination. Continued monitoring and follow-up with cardiology are recommended. 3. Anxiety And Depression The patient is currently on bupropion and paroxetine for anxiety and depression. These medications were initially prescribed in [place] and have been continued by the current provider. The plan is to continue the current medication regimen and monitor for efficacy and side effects. During the visit, we discussed the management of hypertension, including the possibility of reducing medication if blood pressure remains low. We also reviewed the patient's history of heart valve disorder and the importance of continued monitoring with cardiology. The patient was advised to continue current medications for anxiety and depression and to report any side effects. Orders: Orders C Reactive Protein Today Z00.00 - Encounter for general adult medical examination without abnormal findings Complete Blood Count Auto Diff Today Z00.00 - Encounter for general adult medical examination without abnormal findings Hemoglobin A1c Today Z00.00 - Encounter for general adult medical examination without abnormal findings Comprehensive [place]. Panel Fast Today Z00.00 - Encounter for general adult medical examination without abnormal findings Lipid Panel Today Z00.00 - Encounter for general adult medical examination without abnormal findings Liver Panel Today Z00.00 - Encounter for general adult medical examination without abnormal findings Magnesium Today Z00.00 - Encounter for general adult medical examination without abnormal findings Vitamin B12 and Folate Today Z00.00 - Encounter for general adult medical examination without abnormal findings Vitamin D 25-OH Total Today Z00.00 - Encounter for general adult medical examination without abnormal findings TSH reflex Free T4 Today Z00.00 - Encounter for general adult medical examination without abnormal findings PSA,Total (Free>4and<10) Today Z00.00 - Encounter for general adult medical examination without abnormal findings Patient Instructions: - Monitor blood pressure regularly and report any significant changes. - Continue current medications as prescribed and report any side effects. - Schedule follow-up appointment in six months.
[2025-03-21 09:53] VITALS: BP 119/59; PULSE 72; RESP 18; TEMP 36.6; O2SAT 96; BMI 30.8
--- OUTSIDE RECORDS SUMMARY | 2025-03-21 10:59 | XMS_ITS | Patient Health Record ---
Author Organization [facility] Billing Info Address [address] [place], [place] [address] [address] Care Team Providers Care Meat Stock Clerk Name Role Phone David Joyner MD Primary Care Provider Unavaila delio SamsRUBEN Unavailable [phone] Reason For Referral No Information Medications Medication [...] Problem Status W/U Status Risk Notes Problem 76523653 Mixed hyperlipidemia (E78.2) Active confirmed Problem 0721952798304 Presence of prosthetic heart valve (Z95.2) Active confirmed Problem 84450843 Palpitations (R00.2) Active confirmed Problem Mitral valve disorder (30478202) Mitral valve disorders (I05.9) Active confirmed Plan Of Treatment No Information Insurance Providers Payer Name Payer Address Payer Phone Subscriber Number Group Number Insured Name Patient Relationship to Insured Coverage Start Date Coverage End Date [employer] HMO/182 223 [address] JELENA HERRERA [id number] Archie Preston Self - patient is the insured Medical (General) History Medical History History ICD Code Dyslipidemia Hypertension MVP s/p Complex MV repair with 34mm Phys io II ring 10/[address] Queen Normal coronary arteries by 08/27 cath
--- OUTSIDE RECORDS SUMMARY | 2025-03-21 10:59 | XMS_ITS | Patient Health Record ---
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 Name Role Phone David Joyner Primary Care Provider Tad Rosario Unavailable [phone] Allergies No Known Allergies Reason For Referral No Information Medications Medication SIG (Take, Route, Frequency, Duration) Notes Start Date End Date Status hydroCHLOROthiazide Active Metoprolol Active Clenpiq 10-3.5-12 MG-GM -GM/175ML Follow instructions given by office Orally as directed; Duration: 2 days 04/01/2023 Active Losartan Potassium A ctive Atorvastatin Calcium Active ASA Active Bupropion Active amlodipine Active PARoxetine HCl Activ e Problems Problem Type SNOMED Code ICD Code Onset Dates Problem Status W/U Status Risk Notes Problem Abnormal results of liver function studies (075450848) Abnormal results of liver function studies (R94.5) Active confirmed This has been stable. Problem Alcohol dependence (52018271) Alcohol dependence, uncomplicated (F10.20) Active confirmed He has significant alcohol abuse. He was advised to stop drinking alcohol altogether. Problem Screening for malignant neoplasm of colon (447855570) Encounter for screening for malignant neoplasm of colon (Z12.11) Active confirmed He is a candidate for screening colonoscopy. Problem Diverticular disease of colon (146905980) Diverticulosis of large intestine without perforation or abscess without bleeding (K57.30) Active confirmed There is no evidence of diverticulitis . Problem Fatty liver (613337430) Fatty (change of) liver, not elsewhere classified (K76.0) Active confirmed He has history of fatty liver changes. He will need FIBROSCAN done. Problem Constipation (88899225) Constipation, unspecified (K59.00) Active confirmed Constipation is stable at this time. 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 Problem Screening colonoscopy (798698759) Screening Colonoscopy (V76.51) Active confirmed Problem Constipation (52838201) Constipation (564.00) Active confirmed Problem Benign neoplasm of colon (27543437) Benign neoplasm of colon, unspecified (D12.6) Active [...] Coverage Start Date Coverage End Date [employer] [address] [place] [address] [id number] DAHLIA CORONADO Self - patient is the insured Medical (General) History Medical History History ICD Code dyslipidemia anxiety Hypertension Fatty liver Surgical History Surgery Date(Month/Year) open heart leaky mitrovalve
== END 2025-03-21 10:27 | disposition home or self-care (01) ==
LOC: HO.HMCSH 09:31
PROVIDERS: PCP Internal Medicine; Visit Provider Physician Assistant Medical
DX: I10 Essential (primary) hypertension (principal); Z98.890 Other specified postprocedural states; F41.9 Anxiety disorder, unspecified; F32.A Depression, unspecified

== ENCOUNTER → 2025-03-21 09:31 | Outpatient (BNVA) | payer OTHER, SELFPAY | PROVIDERS: PCP Internal Medicine; Visit Provider Physician Assistant Medical | DX: I10 Essential (primary) hypertension (principal); F41.9 Anxiety disorder, unspecified; F32.A Depression, unspecified; Z98.890 Other specified postprocedural states | CPT/HCPCS: 96127; 99202 ==